=== PATIENT | male | born 1960 | race Two or more races ===

== ENCOUNTER → 2017-11-29 | Outpatient (CLI) | payer SELFPAY ==
[~2017-11-29] VITALS: Ht 167.6 cm; Wt 80.0 kg
[2017-11-29 11:12] VITALS: BP 146/85
== END | disposition home or self-care (01) ==
LOC: HBOWC 10:52
PROVIDERS: ATTEND Nurse Practitioner Adult Health
DX: E11.621 Type 2 diabetes mellitus with foot ulcer (principal); L97.511 Non-pressure chronic ulcer of other part of right foot limited to breakdown of skin; E11.40 Type 2 diabetes mellitus with diabetic neuropathy, unspecified; E78.5 Hyperlipidemia, unspecified; Z89.422 Acquired absence of other left toe(s)
CPT/HCPCS: 11042; 87070; 87077; 87186; 87205; G0463

== ENCOUNTER → 2017-12-20 | Outpatient (CLI) | payer SELFPAY ==
[~2017-12-20] MED LIST: GENTAMICIN SULFATE 0.1% 15 GM OINTMENT TP ONE
[2017-12-20 11:35] VITALS: BP 120/68
== END | disposition home or self-care (01) ==
LOC: HBOWC 10:44
PROVIDERS: ATTEND Nurse Practitioner Adult Health
DX: E11.621 Type 2 diabetes mellitus with foot ulcer (principal); L97.511 Non-pressure chronic ulcer of other part of right foot limited to breakdown of skin; E11.40 Type 2 diabetes mellitus with diabetic neuropathy, unspecified; E78.5 Hyperlipidemia, unspecified; Z89.422 Acquired absence of other left toe(s)
CPT/HCPCS: 11042